=== PATIENT | male | born 1955 | race American Indian/Alaskan Native ===

== ENCOUNTER 2021-08-10 02:10 | Emergency (ER) | payer SELFPAY ==
[~2021-08-10 02:10] MED LIST: CALCIUM CHLORIDE 1,000 MG/10 ML SYRINGE IV ONE; DEXTROSE 50% IN WATER (25GM) 50 ML SYRINGE IV ONE; EPINEPHrine 1 MG/10 ML SYRINGE ONE; SODIUM BICARB 8.4% 50 MEQ/50 ML SYRINGE IV ONE
--- NOTE | 2021-08-10 02:34 | Emergency Department Report ---
ED CPR HPI - General Stated Complaint: CARDIAC ARREST Time Seen by Provider: 08/10/21 02:29 Source: EMS Limitations: Altered Mental Status - History of Present Illness Initial Comments: Chief complaint: Cardiac arrest HPI: This is a 55-year-old male with history of hypertension, diabetes mellitus, bipolar disorder, chronic kidney disease who presents in cardiac arrest. EMS found the patient pulseless on arrival. PEA rhythm. Patient received multiple doses of epinephrine through IO. Patient was intubated with ETT per EMS. EMS performed ACLS for 15 minutes prior to patient's arrival to emergency department. Family members found patient unresponsive barely breathing which prompted call for 911. MD Complaint: found unresponsive (Found unresponsive per EMS) Place: home Initial Findings in the Field: unresponsive, PEA ROSC in the Field: No Associated Injuries: No Treatments Prior to Arrival: intubation, chest compressions, epinephrine mgs # (Several doses of epinephrine) ED Review of Systems ROS: Stated complaint: CARDIAC ARREST Other details as noted in HPI Comment: Unobtainable due to pts medical conditions (Lifeless cardiac arrest) ED Past Medical Hx - Past Medical History Previous Medical History?: Yes Hx Hypertension: Yes Hx Diabetes: Yes - Surgical History Additional Surgical History: Unable to obtain - Family History Family history: other (Unable to obtain) - Social History Smoking Status: Unknown if ever smoked Substance Use Type: Other (Unable to obtain) ED Physical Exam - General Limitations: Other (Lifeless cardiac arrest) General appearance: other (Lifeless no spontaneous movement GCS 3) - Head Head exam: Present: atraumatic, normocephalic - Eye Eye exam: Present: other (Dried sclera fixed dilated pupils) - ENT ENT exam: Present: other (Pale mucosa ETT in place) - Neck Neck exam: Present: normal inspection, full ROM - Respiratory Respiratory exam: Present: other (No spontaneous respiration, unequal breath sounds) - Cardiovascular Cardiovascular Exam: Present: other (No palpable pulse no auscultated cardiac sounds) - GI/Abdominal GI/Abdominal exam: Present: distended, diminished bowel sounds - Extremities Exam Extremities exam: Present: other (No deformity no significant edema) - Neurological Exam Neurological exam: Present: other (Lifeless no spontaneous movement) - Psychiatric Psychiatric exam: Present: other (Nonverbal no effort to move or speak) - Skin Skin exam: Present: other (No lacerations no ecchymosis) ED Course - Reevaluation(s) Reevaluation #1: 08/10/21 03:47 I spoke with sister via phone her name is Mrs. Cyr. I asked her to come to the hospital. She resides in [facility] Reevaluation #2: 08/10/21 04:46 Family members arrived. I informed sister and niece alongside a male relative of patient's . Eyebrow family members to bedside for review of the body. - Intubation Time Out Performed: No (Emergent intubation cardiac arrest) Laryngoscope: Jenn Size: 4 ET Tube Size: 7.5 Tube Secured Depth (cm): 24 Tube Secured Location: lips Tube Placement Confirmation: visualized tube passing t Patient Tolerated Procedure: well Intubation Complications: none ED Medical Decision Making - Medical Decision Making PEA cardiac arrest: Patient required reintubation. Botanical breath sounds in gastric contents suspected esophageal intubation. After I performed intubation, oxygen saturation improved to 100%. We continued chest compressions. Patient received full attempt ACLS resuscitation with dextrose, multiple doses of epinephrine, calcium, sodium bicarbonate. Patient was shocked 1 time 200 J biphasic energy for one instance of ventricular fibrillation. Asystole then ensued after continue resuscitation. Time of 0225 Critical Care Time: Yes Critical care time in (mins) excluding proc time.: 40 Critical care attestation.: If time is entered above; I have spent that time in minutes in the direct care of this critically ill patient, excluding procedure time. 40 minutes of critical care time excluding procedures were used in the care of the patient. I came immediately to the bedside upon patient's arrival. I obtained history from EMS at the bedside. I discussed treatment plan with the nursing team members. I was unable to attend the patient's during resuscitation attempt. Patient required multiple interventions and reassessments. ED Disposition Clinical Impression: Cardiac arrest Disposition: 20 Is pt being admited?: No Does the pt Need Aspirin: No Referrals: PRIMARY CARE, [Primary Care Provider] - 3-5 Days Time of Disposition: 02:25
== END 2021-08-10 05:57 ==
LOC: EDBD → ED 02:10
DX: I46.9 Cardiac arrest, cause unspecified (principal); I10 Essential (primary) hypertension; E11.9 Type 2 diabetes mellitus without complications
CPT/HCPCS: 31500; 92950; 99291; J0171; J3490